=== PATIENT | female | born 1960 | race Two or more races ===

== ENCOUNTER → 2016-12-26 | Day surgery (SDC) | payer OTHER ==
[~2016-12-26] MED LIST: AMLO2.5T2 PO; DIPH25CA58 PO; GUAI5LIQ PO; HYDR-971 PO; HYDROmorphone 2 MG/ML VIAL IV PRN; INSU100C4 SQ; INSU100I17 SQ; INSU100V8 SQ; IV RINGERS,LACTATED 1000ML 1,000 ML IV SCH; LIDO700A4 TP; LIDOCAINE 1% 1 ML SYRINGE. ID PRN; METO100T2 PO; MORPHINE SULFATE 2 MG/ML DISP.SYRIN. IV PRN; MYCO360T PO; NITR100C PO; OMEP40CA5 PO; ONDANSETRON PF 4 MG/2 ML VIAL. IV PRN; PROCHLORPERAZINE 10 MG/2 ML VIAL. IV PRN; PROPOFOL 20 ML IV ONE; TACR1CAP4 PO; fentaNYL PF VIAL 100 MCG/2 ML VIAL IV PRN
--- NOTE | 2016-12-26 09:06 | PDOC1 ---
HISTORY & PHYSICAL H&P Chantelle Rodriguez [id number] 1960 12/06/2016 02:00 PM 08/27 [place] [facility], [facility] OUR PATIENTS COME FIRST [address] [place], [place] [id number] Ph. [phone] Patient: Chantelle Rodriguez Date of : 1960 Date: 12/06/2016 2:00 PM Visit Type: Consult This 56 year old female presents for Constipation and Screening colonoscopy. History of Present Illness: 1. Constipation The patient describes it as difficulty passing, hard, ribbon like and scybalous. It occurs constantly. Denies aggravating symptoms. Denies relieving factors. Pertinent negatives include abdominal pain, black tarry stools, bloating, nausea, vomiting and weight loss. Additional information: Has some constipation and needs to take laxative frequently. 2. Screening colonoscopy Prior screening: colonoscopy. Denies risk factors. Pertinent negatives include abdominal pain, change in bowel habits, change in stool caliber, constipation, decreased appetite, diarrhea, melena, nausea, rectal bleeding, vomiting, weight gain and weight loss. Additional information: No family history of colon cancer, No family history of Crohn's/colitis, No NSAID/ASA use and Last colonoscopy 10 yrs ago. INTAKE COMMENTS: Intake Comments: Nurse Note: the pt is here today for a screening colonoscopy, the pt states that she had one a few years ago by another doctor. She can not remember if anything was found. PROBLEM LIST: Problem Description Onset Date Chronic Notes DM w/o complication type II, uncontrolled 05/18/2016 Ankle cellulitis 04/17/2016 IDDM (insulin dependent diabetes mellitus) 04/17/2016 Closed fracture of multiple ribs of right side with routine healing, subsequent encounter 04/17/2016 PAST MEDICAL/SURGICAL HISTORY (Detailed) Disease/disorder Onset Date Management Date Comments Carpel Tunnel Surgery (R) Arm Hysterectomy Appendectomy EGD 12/2007 MIld Esophagitis, Hiatal Hernia , Gastritis Colitis Colonoscopy 03/2007 Diabetes End Stage Renal Disease High cholesterol Hypertension kidney transplant 2010 Medications (Active): Started Medication Directions Instruction Stopped 11/09/2016 Ambien 5 mg tablet take 1 tablet by oral route every day at bedtime 08/13/2009 BD Insulin Syringe Micro-Fine 1/2 mL 28 x 1/2" use as directed 06/11/2009 BD Insulin Syringe Ult-Fine II 1 mL 31 x 5/16" Inject qid 12/06/2016 Colyte with Flavor Packs 240 gram-22.72 g-6.72 g-5.84 g oral solution drink 1 gallon by Oral route 08/10/2016 Humalog KwikPen 100 unit/mL subcutaneous 40 u qid 11/09/2016 hydrocodone 7.5 mg-acetaminophen 325 mg tablet take 1 tablet by oral route every 6 hours as needed for pain lactulose 10 gram/15 mL oral solution take 30 milliliter by oral route 2 times every day 07/28/2016 Lantus Solostar 100 unit/mL (3 mL) subcutaneous insulin pen 60 u at hs 05/18/2016 Lidoderm 5 % adhesive patch apply 1 patch by transdermal route 2 times every day (May wear up to 12hours.) 11/09/2016 METOPROLOL SUCC ER 50 MG TAB TAKE ONE TABLET BY MOUTH DAILY. 11/08/2016 metoprolol succinate ER 100 mg tablet,extended release 24 hr TAKE (1 ) TABLET BY MOUTH TWICE DAILY 05/18/2016 Miralax 17 gram/dose oral powder take 1 tablespoonful (17G) by ORAL route every day powder mixed with 8 oz. water, juice, soda, coffee, or tea 05/18/2016 Myfortic 360 mg tablet,delayed release take 1 tablet by oral route 2 times every day on an empty stomach 11/09/2016 omeprazole 40 mg capsule,delayed release TAKE (1) CAPSULE TWICE DAILY - MORNING AND EVENING 08/10/2016 OneTouch Delica Lancets 33 gauge q 4 hours+prn 08/10/2016 OneTouch Ultra Test strips q 4 hours+prn 05/18/2016 Prograf 1 mg capsule take 3 capsules by mouth every morning and 2 capsules every night at bedtime 09/06/2016 Symbicort 160 mcg-4.5 mcg/actuation HFA aerosol inhaler inhale 2 puff by inhalation route 2 times every day in the morning and evening 09/06/2016 Ventolin HFA 90 mcg/actuation aerosol inhaler inhale 2 puff by inhalation route every 4 hours as needed Allergies: Ingredient Reaction Medication Name Comment NO KNOWN DRUG ALLERGIES REVIEW OF SYSTEMS System Neg/Pos Details Constitutional Negative Chills, fever, malaise, weight gain and weight loss. ENMT Negative Sore throat. Eyes Negative Double vision. Respiratory Negative Dyspnea and wheezing. Cardio Negative Chest pain and irregular heartbeat/palpitations. GI Positive See HPI. GI Negative Abdominal pain, black tarry stools, bloating, change in bowel habits , change in stool caliber, constipation, decreased appetite, diarrhea, melena, nausea, see HPI, rectal bleeding and vomiting. Negative Dysuria and hematuria. Endocrine Negative Cold intolerance and heat intolerance. Psych Negative Anxiety. Integumentary Negative Hives and rash. MS Negative Joint pain. Karl/Lymph Negative Easy bleeding and easy bruising. Allergic/Immuno Negative Food allergies. VITAL SIGNS Time BP mm/Hg Pulse /min Resp /min Temp F Ht ft Ht in Ht cm Wt lb Wt kg BMI kg/ m2 BSA m2 O2 Sat% 2:13 PM 126/74 73 98.1 4.0 11.00 149.86 180.20 81.737 36.40 95 Time Measured by 2:13 PM Madeline Torrez PHYSICAL EXAM: Exam Findings Details Constitutional Normal Well developed. Eyes Normal Conjunctiva - Right: Normal, Left: Normal. Sclera - Right: Normal, Left: Normal. Nasopharynx Normal Lips/teeth/gums - Normal. Neck Exam Normal Inspection - Normal. Thyroid gland - Normal. Respiratory Normal Inspection - Normal. Auscultation - Normal. Cardiovascular Normal Regular rate and rhythm. No murmurs, gallops, or rubs. Vascular Normal Pulses - Carotids: Normal, Femoral: Normal, Dorsalis pedis: Normal. Abdomen Normal Inspection - Normal. Anterior palpation - No guarding. No abdominal tenderness. No hepatic enlargement. No splenic enlargement. No hernia. No Ascites. Skin Normal Inspection - Normal. Extremity Normal No edema. Psychiatric Normal Oriented to time, place, person, and situation. Appropriate mood and effect. The patient was checked out at 2:14 PM by Madeline Torrez. Assessment/Plan # Detail Type Description 1. Assessment Slow transit constipation (K59.01). Patient Plan Await colonoscopy results. Continue laxative as needed. 2. Assessment Encounter for screening colonoscopy (Z12.11). Patient Plan schedule colonoscopy at [facility] Plan Orders Further diagnostic evaluations ordered today include(s) Colonoscopy to be performed today. She is to schedule a follow-up visit Electronically signed by: Katt Odell MD 12/06/2016 02:30 PM Document generated by: Katt Odell 12/06/2016 02:30 PM Brock Becker MD, Family Practice; Jesse Westfall MD Internal Medicine; Katerina De La Rosa MD, Internal Medicine; Carlos Odell MD Internal Medicine; Katt Odell MD, Gastroenterology; Tong Bedoya MD, Rheumatology, S. Maikel Barrera, Physical Medicine/Rehab J. Danay OBANDON ------ 12/26/16 Patient seen and examined. No change in H&P. KATT ODELL MD December 26, 2016 09:06
--- NOTE | 2016-12-26 10:09 | PDOC4 ---
GI OP Report - Dr. Roland Date/Time DATE: 12/26/16 TIME: 10:07 Attending Physician García Roland MD Referring Physician Indications Screening for colorectal malignant neoplasm Pre-Op See the Anesthesia note for documentation of the administered medications Procedures Colonoscopy Findings - The entire examined colon is normal on direct and retroflexion views. - No specimens collected. Plan -Discharge patient to home. - Patient has a contact number available for emergencies. The signs and symptoms of potential delayed complications were discussed with the patient. Return to normal activities tomorrow. Writt- en discharge instructions were provided to the patient. - Resume regular diet. - Continue present medications. - Repeat colonoscopy in 10 years for surveillance. - Return to my office as needed. GARCÍA ROLAND MD December 26, 2016 10:09
[2016-12-26 10:32] VITALS: BP 124/71
== END | disposition home or self-care (01) ==
LOC: ENDOS 08:21
PROVIDERS: ATTEND Internal Medicine Gastroenterology
DX: Z12.11 Encounter for screening for malignant neoplasm of colon (principal); E78.00 Pure hypercholesterolemia, unspecified; I10 Essential (primary) hypertension; J45.909 Unspecified asthma, uncomplicated; E66.9 Obesity, unspecified; K21.9 Gastro-esophageal reflux disease without esophagitis; M19.90 Unspecified osteoarthritis, unspecified site; E11.9 Type 2 diabetes mellitus without complications; D64.9 Anemia, unspecified; Z90.710 Acquired absence of both cervix and uterus; Z94.0 Kidney transplant status
CPT/HCPCS: 45378; 82947; 99156; J2704

== ENCOUNTER 2017-10-26 12:46 | Emergency (ER) | payer OTHER ==
[2017-10-26] MEDS: HYDROcodone/APAP 5/325MG 1 TAB TABLET PO (13:38)
== END 2017-10-26 15:08 | disposition home or self-care (01) ==
LOC: ER 12:46
DX: M25.561 Pain in right knee (principal); M25.551 Pain in right hip; I12.9 Hypertensive chronic kidney disease with stage 1 through stage 4 chronic kidney disease, or unspecified chronic kidney disease; N18.9 Chronic kidney disease, unspecified; E11.22 Type 2 diabetes mellitus with diabetic chronic kidney disease; Z94.0 Kidney transplant status; W01.0XXA Fall on same level from slipping, tripping and stumbling without subsequent striking against object, initial encounter; Y93.89 Activity, other specified; Y99.8 Other external cause status; Y92.89 Other specified places as the place of occurrence of the external cause
CPT/HCPCS: 72192; 73502; 73562; 99284-25

== ENCOUNTER → 2017-11-08 | Outpatient (CLI) | payer OTHER | END | disposition home or self-care (01) | LOC: NM 07:31 | DX: K31.84 Gastroparesis (principal); K30 Functional dyspepsia | CPT/HCPCS: 78264; A9541 ==

== ENCOUNTER → 2017-12-14 | Outpatient (CLI) | payer OTHER | END | disposition home or self-care (01) | LOC: CT 09:07 | DX: M54.9 Dorsalgia, unspecified (principal); I70.0 Atherosclerosis of aorta; Z94.0 Kidney transplant status | CPT/HCPCS: 74176 ==

== ENCOUNTER → 2018-05-30 | Outpatient (CLI) | payer OTHER ==
[2017-10-26 13:15] VITALS: BP 120/71
[~2018-05-30] MED LIST changes: -HYDROmorphone 2 MG/ML VIAL IV PRN; -IV RINGERS,LACTATED 1000ML 1,000 ML IV SCH; -LIDOCAINE 1% 1 ML SYRINGE. ID PRN; -METO100T2 PO; +METO100T7 PO; -MORPHINE SULFATE 2 MG/ML DISP.SYRIN. IV PRN; -ONDANSETRON PF 4 MG/2 ML VIAL. IV PRN; -PROCHLORPERAZINE 10 MG/2 ML VIAL. IV PRN; -PROPOFOL 20 ML IV ONE; -fentaNYL PF VIAL 100 MCG/2 ML VIAL IV PRN
--- NOTE | 2018-05-30 15:10 | RAD ---
DATE: 05/30/2018 EXAM: DIGITAL SCREEN BILAT W/CAD HISTORY: Routine screening COMPARISON: 10/16/2014 This study was interpreted with the benefit of Computerized Aided Detection (CAD). Breast Density: SCATTERED The breast parenchyma shows scattered fibroglandular densities. Breast parenchyma level B. FINDINGS: No new or enlarging breast densities are seen. Benign type calcifications are present. No suspicious microcalcifications have developed. IMPRESSION: Stable mammograms without evidence of malignancy. BI-RADS CATEGORY: 2 BENIGN FINDING(S) RECOMMENDED FOLLOW-UP: 12M 12 MONTH FOLLOW-UP PQRS compliance statement: Patient information was entered into a reminder system with a target due date for the next mammogram. Mammography is a sensitive method for finding small breast cancers, but it does not detect them all and is not a substitute for careful clinical examination. A negative mammogram does not negate a clinically suspicious finding and should not result in delay in biopsying a clinically suspicious abnormality. "Our facility is accredited by the [employer] Mammography Program."
== END | disposition home or self-care (01) ==
LOC: MAMMO 14:34
PROVIDERS: ATTEND Internal Medicine
DX: Z12.31 Encounter for screening mammogram for malignant neoplasm of breast (principal)
CPT/HCPCS: 77067

== ENCOUNTER → 2018-06-13 | Outpatient (CLI) | payer OTHER ==
[2017-10-26 13:15] VITALS: BP 120/71
--- NOTE | 2018-06-13 15:35 | RAD ---
MRI Lumbar Spine without contrast History: Low back pain, bilateral radiculopathy Technique: Multiplanar, multi sequential noncontrast MR imaging was performed of the lumbar spine. Contrast: None Comparison: None Findings: There is transitional anatomy of the lumbar spine. For the purpose of this report, most inferior fully formed intervertebral disc space is considered L5-S1 although there is a partially formed rudimentary intervertebral disc space at what is considered S1-S2. There is mild disc desiccation at L5-S1. Lumbar vertebral body stature and AP alignment are maintained. Conus terminates at L1-L2. There is no significant marrow edema. There is right lower quadrant transplant kidney. L3-L4: Spinal canal and neural foramina are adequate. L4-L5: Neural foramina and spinal canal are adequate. L5-S1: There is [id number] facet degenerative change. Spinal canal is adequate. There is mild posterior neural foramina compromise bilaterally greater on the left. Impression: 1. There is transitional anatomy of the lumbar spine. There is no significant lumbar spinal stenosis. There is mild neural foramina compromise bilaterally greater on the left at what is considered L5-S1 due to facet degenerative change. There is mild disc desiccation at what is considered L5-S1. Electronically signed by: John Bradford MD (06/13/2018 3:32 PM) [id number]
== END | disposition home or self-care (01) ==
LOC: MRI 14:33
PROVIDERS: ATTEND Nurse Practitioner
DX: M51.16 Intervertebral disc disorders with radiculopathy, lumbar region (principal)
CPT/HCPCS: 72148

== ENCOUNTER 2018-11-19 22:03 | Emergency (ER) | payer OTHER ==
[~2018-11-19] VITALS: Ht 149.9 cm; Wt 86.2 kg
[~2018-11-19 22:03] MED LIST changes: +HYDR-3164 PO; -HYDR-971 PO
[2018-11-19 23:42] VITALS: BP 178/94
[2018-11-20] MEDS ORDERED: AMOX875T PO (00:14)
[2018-11-20] MEDS ORDERED: HYDR-3164 PO (00:14)
--- NOTE | 2018-11-20 00:14 | PHYS DOC ---
Past Medical History Past Medical History: Diabetes-Type II, Hypertension, Immunosuppression, Renal Failure (RAYRAY CHAKRABORTY APRN) Past Surgical History: Appendectomy, Hysterectomy, Other Additional Past Surgical Histo: KIDNEY TRANSPLANT, DIALYSIS SHUNT RIGHT ARM, CARPAL TUNNEL (RAYRAY CHAKRABORTY APRN) Alcohol Use: None Drug Use: None (RAYRAY CHAKRABORTY APRN) Adult General Chief Complaint Chief Complaint: DENTAL PROBLEM HPI HPI Patient is a 58 year old female who presents complaining of 8 out of 10 right upper gum dental pain and swelling intermittently for one month but got worse yesterday. Patient denies any fever or trismus. She describes the pain as throbbing. (RAYRAY CHAKRABORTY APRN) Review of Systems Review of Systems Constitutional: Denies fever or chills [] Eyes: Denies change in visual acuity, redness, or eye pain [] HENT: Reports dental pain Musculoskeletal: Denies back pain or joint pain [] Integument: Denies rash or skin lesions [] Neurologic: Denies headache, focal weakness or sensory changes [] All other systems were reviewed and found to be within normal limits, except as documented in this note. (RAYRAY CHAKRABORTY APRN) Current Medications Current Medications Current Medications Medications (Trade) Dose Ordered Sig/Regine Start Time Stop Time Status Last Admin Dose Admin Acetaminophen/ Hydrocodone Bitart (Lortab 5/325) 2 tab 1X ONCE 11/20/18 00:15 11/20/18 00:16 DC 11/20/18 00:38 2 TAB Amoxicillin (Amoxil) 250 mg STK-MED ONCE 11/20/18 00:43 11/20/18 00:48 DC Naproxen (Naprosyn) 500 mg 1X ONCE 11/20/18 00:15 11/20/18 00:16 DC 11/20/18 00:38 500 MG (RYAN LEARY DO) Allergies Allergies Allergies Coded Allergies Type Severity Reaction Last Updated Verified No Known Drug Allergies 12/26/16 No (RYAN LEARY DO) Physical Exam Physical Exam Constitutional: Well developed, well nourished, no acute distress, non-toxic appearance. [] HENT: Normocephalic, atraumatic, bilateral external ears normal, oropharynx moist, no oral exudates, nose normal. [] Right upper gum with mild swelling, missing multiple teeth on the right upper gum. Roughly 6 teeth remaining on the upper gum, 2 of them appear severely decayed. Skin: Warm, dry, no erythema, no rash. [] Back: No tenderness, no CVA tenderness. [] Extremities: No tenderness, no cyanosis, no clubbing, ROM intact, no edema. [] Neurologic: Alert and oriented X 3, normal motor function, normal sensory function, no focal deficits noted. [] Psychologic: Affect normal, judgement normal, mood normal. [] (RAYRAY CHAKRABORTY APRN) Current Patient Data Vital Signs Vital Signs Date Time Temp Pulse Resp B/P (MAP) Pulse Ox O2 Delivery O2 Flow Rate FiO2 11/20/18 00:38 98 Room Air 11/19/18 23:42 98.6 85 16 178/94 (122) 98.6 (RYAN LEARY DO) EKG EKG [] (RAYRAY CHAKRABORTY APRN) Radiology/Procedures Radiology/Procedures [] (RAYRAY CHAKRABORTY APRN) Course & Med Decision Making Course & Med Decision Making Pertinent Labs and Imaging studies reviewed. (See chart for details) Patient has a dental abscess. Discharged with amoxicillin, hydrocodone for pain. Follow-up with a dentist. (RAYRAY CHAKRABORTY APRN) Dragon Disclaimer Dragon Disclaimer This electronic medical record was generated, in whole or in part, using a voice recognition dictation system. (RAYRAY CHAKRABORTY APRN) Departure Departure Impression: Primary Impression: Dentalgia Additional Impression: Abscess, dental Disposition: 01 HOME, SELF-CARE Condition: STABLE Referrals: ROSEMARY BRAVO MD (PCP) follow up with your dentist in one week Patient Instructions: Dental Abscess, Dental Pain Additional Instructions: You have a dental abscess. Take the prescribed medication as needed for pain as well as antibiotics as prescribed until completed. Follow-up with your dentist as soon as possible. Scripts Hydrocodone/Apap 5-325 (NORCO 5-325 TABLET) 1 Each Tablet 1 TAB PO Q4-6HRS, #12 TAB Prov: RAYRAY CHAKRABORTY APRN 11/20/18 Amoxicillin (AMOXICILLIN) 875 Mg Tablet 1 TAB PO BID, #20 TAB Prov: RAYRAY CHAKRABORTY APRN 11/20/18 Attending Signature Attending Signature I have reviewed the PA/PAID INTERN's note and plan of care. I was available for consultation as needed during the patient's visit in the emergency department. I agree with the clinical impression, plan, and disposition. (RYAN LEARY DO) Problem Qualifiers RAYRAY CHAKRABORTY CARLTON Nov 20, 2018 00:14 RYAN LEARY DO Nov 23, 2018 05:24
[2018-11-20] MEDS ORDERED: HYDROcodone/APAP 5/325MG 1 TAB TABLET PO ONE (00:15)
[2018-11-20] MEDS ORDERED: NAPROXEN 500 MG TABLET PO ONE (00:15)
[2018-11-20] MEDS ORDERED: AMOXICILLIN 250 MG CAPSULE. ONE (00:43)
[2018-11-20] MEDS ORDERED: AMOXICILLIN 250 MG CAPSULE. PO ONE (00:45)
== END 2018-11-20 00:48 | disposition home or self-care (01) ==
LOC: ER 22:03
DX: K04.7 Periapical abscess without sinus (principal); E11.9 Type 2 diabetes mellitus without complications; I10 Essential (primary) hypertension; Z90.710 Acquired absence of both cervix and uterus; Z90.89 Acquired absence of other organs
CPT/HCPCS: 99284

== ENCOUNTER → 2019-07-16 | Outpatient (CLI) | payer OTHER, MEDICAID ==
[~2019-07-16] MED LIST changes: +AMOX875T PO; +OMEP40CA45 PO; -OMEP40CA5 PO
--- NOTE | 2019-07-18 13:34 | RAD ---
DATE: 07/16/2019. EXAM: DIGITAL SCREEN BILAT W/CAD. HISTORY: Routine mammographic screening. COMPARISON: 05/30/2018. This study was interpreted with the benefit of Computerized Aided Detection (CAD). FINDINGS: Breast Density: SCATTERED The breast parenchyma shows scattered fibroglandular densities. Breast parenchyma level B.. Vascular calcifications are benign. There are no suspicious masses, microcalcifications or architectural distortion. The parenchymal pattern is stable. BI-RADS CATEGORY: 2 BENIGN FINDING(S). RECOMMENDED FOLLOW-UP: 12M 12 MONTH FOLLOW-UP. PQRS compliance statement: Patient information was entered into a reminder system with a target due date 07/16/2020 for the next mammogram. Mammography is a sensitive method for finding small breast cancers, but it does not detect them all and is not a substitute for careful clinical examination. A negative mammogram does not negate a clinically suspicious finding and should not result in delay in biopsying a clinically suspicious abnormality. "Our facility is accredited by the [employer] Mammography Program."
== END | disposition home or self-care (01) ==
LOC: MAMMO 14:29
PROVIDERS: ATTEND Pediatrics
DX: Z12.31 Encounter for screening mammogram for malignant neoplasm of breast (principal); N64.89 Other specified disorders of breast
CPT/HCPCS: 77067

== ENCOUNTER → 2022-01-18 | Outpatient (CLI) | payer OTHER, MEDICAID ==
[~2022-01-18] MED LIST changes: -OMEP40CA45 PO; +OMEP40CA7 PO; -TACR1CAP4 PO; +TACR1CAP5 PO
--- NOTE | 2022-01-18 12:47 | RAD ---
Bilateral digital screening 2-D and 3-D (digital breast tomosynthesis) mammogram: Reason for examination: Routine screening. Comparison: Mammograms from 07/16/2019 and 05/30/2018. Interpretation was made with the benefit of CAD. FINDINGS: Breast density: Category B. There are scattered areas of fibroglandular density. No suspicious breast mass, malignant appearing calcifications, or architectural distortion is seen. IMPRESSION: No evidence of malignancy. Assessment: BI-RADS 1. Negative. Recommendation: Routine screening mammograms. The patient will receive a letter with the results in the mail. Patient information will be entered i nto the mammography reminder system with a target recall date for the next mammogram. A reminder avi er will be generated. Electronically signed by: Mitzi Dominguez MD (01/18/2022 12:45 PM) [id number]
== END ==
LOC: MAMMO 10:19
PROVIDERS: ATTEND Pediatrics
DX: Z12.31 Encounter for screening mammogram for malignant neoplasm of breast (principal)
CPT/HCPCS: 77063; 77067